=== PATIENT | female | born 1950 | race Caucasian/White ===

== ENCOUNTER → 2017-11-06 | Outpatient (CLI) | payer MEDICARE ==
[~2017-11-06] MED LIST: Advil200 M1; BUME1; CLIMARA; ESTNORT; HYDACE5; HYOS.125 SL; MAGNESIUM100 MG; PANT40 PO; PHENA200 PO; POTA10T; PROACE100 PO; PROM25 PO; PROMETRIUM; RXPHEN200 PO; TRIHYD5075; WATER PILL
== END | disposition home or self-care (01) ==
LOC: PLD 13:54 → LAB SHORT 13:54
DX: D22.72 Melanocytic nevi of left lower limb, including hip (principal); L11.8 Other specified acantholytic disorders
CPT/HCPCS: 88305

== ENCOUNTER → 2017-12-27 | Outpatient (CLI) | payer MEDICARE | LOC: OLS 15:37 → LAB SHORT 15:37 | PROVIDERS: Obstetrics & Gynecology Gynecology | DX: Z91.89 Other specified personal risk factors, not elsewhere classified (principal) | CPT/HCPCS: 87624; G0123 ==

== ENCOUNTER → 2019-04-08 | Outpatient (CLI) | payer MEDICARE | END | disposition home or self-care (01) | LOC: PLD 08:23 → LAB SHORT 08:23 | DX: D48.5 Neoplasm of uncertain behavior of skin (principal) | CPT/HCPCS: 88305 ==

== ENCOUNTER → 2019-04-23 | Outpatient (CLI) | payer MEDICARE ==
[2019-04-25 15:07] LABS: HPV 16 Negative (Negative); HPV 18 Negative (Negative); HPV OTHER HR TYPES Negative (Negative)
== END | disposition home or self-care (01) ==
LOC: LAB SHORT 17:49 → LAB 17:49
PROVIDERS: Obstetrics & Gynecology Gynecology
DX: L29.3 Anogenital pruritus, unspecified (principal); Z91.89 Other specified personal risk factors, not elsewhere classified
CPT/HCPCS: 87070; 87205; 87624; G0123

== ENCOUNTER 2020-11-13 07:32 | Day surgery (SDC) | payer MEDICARE | END 2020-11-13 23:08 | disposition home or self-care (01) | LOC: MOI US 07:32 → MOI MAM 08:00 → MOI US 23:08 | DX: C50.811 Malignant neoplasm of overlapping sites of right female breast (principal); Z17.0 Estrogen receptor positive status [ER+] | CPT/HCPCS: 19083; 77065; 88305; 88342; 88360; A4648 ==

== ENCOUNTER 2020-11-18 08:26 | Day surgery (SDC) | payer MEDICARE ==
[~2020-11-18] VITALS: Ht 162.6 cm; Wt 96.3 kg
--- NOTE | 2020-11-18 09:28 | NUR ---
11/18/20 0928 Tonia Polk WHEN PT. ASKED IF SHE HAD ANY PAIN, PT. DENIES BUT THEN DID SAY SHE HAD A RECENT RIGHT BREAST BIOPSY & JUST VERBALIZES IT BEING SORE.
== END 2020-11-18 10:35 | disposition home or self-care (01) ==
LOC: ORSCSDS 08:26
PROVIDERS: Internal Medicine Gastroenterology
PROC: 0DBL8ZX Excision of Transverse Colon, Via Natural or Artificial Opening Endoscopic, Diagnostic (ICD-10-PCS; principal; 2020-11-18 09:45)
DX: Z12.11 Encounter for screening for malignant neoplasm of colon (principal); Z86.010 Personal history of colon polyps; D12.3 Benign neoplasm of transverse colon; K57.30 Diverticulosis of large intestine without perforation or abscess without bleeding; E66.01 Morbid (severe) obesity due to excess calories; Z68.36 Body mass index [BMI] 36.0-36.9, adult; Z79.899 Other long term (current) drug therapy
CPT/HCPCS: 88305; J2704; J7120

== ENCOUNTER → 2021-05-10 | Outpatient (CLI) | payer MEDICARE ==
[2021-05-10 13:11] LABS: Albumin, Blood 3.3 g/dL (3.4-5.0); Albumin/Globulin Ratio 0.9 (0.8-1.8); Bilirubin, Total 0.5 mg/dL (0.1-1.0); Bun/Creatinine Ratio 21.1 (12.0-20.0); Calcium, Blood 9.7 mg/dL (8.5-10.1); Creatinine, Blood 1.23 mg/dL (0.40-1.00); Globulin, Blood 3.7 g/dL (2.2-4.0); Potassium, Blood 3.4 mmol/L (3.5-5.5)
== END | disposition home or self-care (01) ==
LOC: LAB SHORT 11:41 → LAB 11:41
PROVIDERS: Internal Medicine Hematology & Oncology
DX: C50.919 Malignant neoplasm of unspecified site of unspecified female breast (principal)
CPT/HCPCS: 80053

== ENCOUNTER 2022-07-27 08:36 | Day surgery (SDC) | payer MEDICARE ==
[~2022-07-27] VITALS: Ht 162.6 cm; Wt 84.9 kg
[~2022-07-27 08:36] MED LIST changes: +ANASTROZOLE1 M7 PO; -Advil200 M1; +DYAZIDE 37.5-21 EACH PO; +ESTRADIOL CREAM VAG; +IBUP200 PO; +MYRBETRIQ25 MG PO
--- NOTE | 2022-07-27 09:29 | NUR ---
[facility] in [facility] warming gown applied. Surgical site prepped with 2% Chlorhexidine cloth wipe. History, Chart, Medications and Allergies reviewed before start of procedure.Lungs clear T/O to Auscultation. Surgical site prepped with 2% Chlorhexidine cloth wipe. Pre-Op teaching done. Pt verbalizes understanding. Patient confirms NPO status and agrees with scheduled surgery. Patient States Post-Procedure ride home has been arranged. Patient reports completing Chlorhexadine shower X2 prior to admission to hospital.
--- NOTE | 2022-07-27 10:51 | NUR ---
07/27/22 1051 Ethel De Jesus PATIENT RECEIVED VANCO 1GM PRIOR TO ARRIVING IN THE OR.
--- NOTE | 2022-07-27 18:18 | NUR ---
SHIFT SUMMARY PT S/P R TOTAL KNEE. PT VERY NUMB AFTER SURGERY IS NOW ABLE TO WIGGLE HER TOES BUT UNABLE TO LIFT HER LEGS. PT STILL ALSO C/O SOME NUMBNESS IN HER LEGS. WILL WORK WITH PHYSICAL THERAPY TOMORROW. SOME NAUSEA NOTED POST OP AND TREATED PER EMR. VSS.
[2022-07-28 03:49] LABS: BASOPHILS ABSOLUTE AUTO 0.02 K/mm3 (0.00-0.23); BASOPHILS PERCENT AUTO 0 % (0-2); EOSINOPHILS PERCENT AUTO 0 % (0-6); Hematocrit 36.7 % (33.0-51.0); Hemoglobin 12.6 g/dL (11.5-16.0); IMMATURE GRAN ABSOLUTE AUTO 0.08 K/mm3 (0.00-0.10); IMMATURE GRAN PERCENT AUTO 1 % (0-1); LYMPHOCYTES ABSOLUTE AUTO 0.84 K/mm3 (0.84-5.20); LYMPHOCYTES PERCENT AUTO 6 % (21-46); MONOCYTES ABSOLUTE AUTO 0.58 K/mm3 (0.16-1.47); MONOCYTES PERCENT AUTO 4 % (4-13); Mean Corpuscular HGB Conc 34.3 g/dL (31.5-36.5); Mean Corpuscular Volume 90 fL (80-100); Mean Platelet Volume 9.2 fL (9.1-12.4); NEUTROPHILS ABSOLUTE AUTO 13.26 K/mm3 (1.96-9.15); NEUTROPHILS PERCENT AUTO 90 % (41-73); Platelet Count 218 K/mm3 (150-400); RDW Coefficient Variation 13.1 % (11.7-14.2); Red Blood Cell Count 4.07 M/mm3 (3.80-5.20); White Blood Cell Count 14.78 K/mm3 (4.00-11.30)
--- NOTE | 2022-07-28 04:10 | NUR ---
POD1 FOR RIGHT TKA. CIRCULATION AND SENSATION REMAINS INTACT IN RLE. DRESSING IS C/D/I. PT REPORTS SHE FEELS IF HER SPINAL HAS WORN OFF. VSS. PT DOZED T/O THE NIGHT, NO REPORTS OF GOOD SLEEP. MEDICATED FOR PAIN WTIH OXY AND SCHEDULED MEDS. PT AMBULATED TO THE BATHROOM A FEW TIMES TO VOID. TOLLERATED PO INTAKE W/O EMESIS. PT C/O NAUSEA THE FIRST HALF OF SHIFT. NO ACUTE EVENTS NOTED T/O THE NIGHT. THE PATIENT IS CURRENTLY AMBULATING IN HER ROOM WITH THE SIGN DESIGNER, IN NO DISTRESS. PLAN FOR PT TO D/C HOME TODAY.
[2022-07-28 04:25] LABS: Bun/Creatinine Ratio 22.2 (12.0-20.0); Calcium, Blood 8.5 mg/dL (8.5-10.1); Creatinine, Blood 1.26 mg/dL (0.40-1.00); Potassium, Blood 4.3 mmol/L (3.5-5.5)
--- NOTE | 2022-07-28 14:39 | NUR ---
Pt. is sitting up in a recliner and welcomes my visit. Pt. is pleasant. Facilitated a life review and established rapport. Pt. was unsettled about the possibility of infection in her new knee. Listened with empathy and a calming presence. Pt. displayed evidence of confidence and new courage. Prayed with Pt. Pt. verbalized gratitude for the spiritual care visit.
[2022-07-28] MEDS ORDERED: ASPI81CH PO (15:10)
[2022-07-28] MEDS ORDERED: PROM25 PO (15:14)
[2022-07-28] MEDS ORDERED: ROXICODONE5 MG PO (15:14)
[2022-07-28] MEDS ORDERED: SULTRIDS PO (15:15)
--- NOTE | 2022-07-28 16:20 | NUR ---
DISCHARGE SUMMARY PATIENT ALERT AND ORIENTED. TOLERATING REGULAR DIET AND LIQUIDS. SBA WITH FWW AND GAIT BELT TO AMBULATE IN ROOM. PAIN CONTROLLED WITH SCHEDULED TYLENOL. HAS NOT NEEDED NARCOTICS THIS SHIFT. RIGHT KNEE DRESSING CHANGED BY DR PALACIOS THIS AM. VOIDING WELL. CLEARED FOR DISCHARGE BY PHYSICAL THERAPY. DISCHARGE EDUCATION GIVEN ON NEW MEDS, ACTIVITY, INCISION CARE, AND FOLLOW UP APPTS. IV'S DC'D BY LINNETTE HERNANDEZ. PATIENT LEFT UNIT AT 1600 VIA WHEELCHAIR FOR HOME WITH SPOUSE.
== END 2022-07-28 16:10 | disposition home or self-care (01) ==
LOC: ORSCMMR 08:36 → ORD 10:45 → ORSCMMR 10:45 → SURS 13:35 → ORSCMMR 07-28 16:10
PROVIDERS: Orthopaedic Surgery
PROC: 0SRC0J9 Replacement of Right Knee Joint with Synthetic Substitute, Cemented, Open Approach (ICD-10-PCS; principal; 2022-07-27 10:45)
DX: M17.0 Bilateral primary osteoarthritis of knee (principal)
CPT/HCPCS: 36415; 73560-RT; 80048; 83735; 85025; 97110; 97116; 97162; 97530; A9270; C1713; C1776; J0171; J0690; J0735; J1885; J2250; J2405; J2704; J2765; J2795; J3010; J3370; J7050; J7120

== ENCOUNTER → 2022-08-20 | Outpatient (CLI) | payer MEDICARE ==
[~2022-08-20] MED LIST changes: +ASPI81CH PO; +ROXICODONE5 MG PO; +SULTRIDS PO
[2022-08-20 17:58] LABS: Candida species (DNA Probe) Negative (NEGATIVE); G. vaginalis (DNA Probe) Positive (NEGATIVE); T. vaginalis (DNA Probe) Negative (NEGATIVE)
== END ==
LOC: LAB SHORT 15:35 → LAB 15:35
PROVIDERS: Physician Assistant
DX: N76.0 Acute vaginitis (principal)
CPT/HCPCS: 87077; 87086; 87186; 87480; 87510; 87660

== ENCOUNTER → 2022-09-05 | Outpatient (CLI) | payer MEDICARE | LOC: LAB SHORT 15:00 → LAB 15:00 | DX: N39.0 Urinary tract infection, site not specified (principal) | CPT/HCPCS: 87077; 87086; 87186 ==

== ENCOUNTER 2024-10-17 06:10 | Day surgery (SDC) | payer MEDICARE ==
[~2024-10-17] VITALS: Ht 160 cm; Wt 82.8 kg
[~2024-10-17 06:10] MED LIST changes: +Balanced Salt Epinephrine Irrigation Solution 500 mL IR SCH; +Diazepam 5 MG Tab PO PRN; +Diazepam 5 MG Tab PO SCH; +Lidocaine HCl/Pf 1% 5 ML VIAL XX SCH; +Moxifloxacin HCL 0.5 MG/0.1 ML 0.4MLSYR RIGHTEYE SCH; +Ondansetron 4 MG SoluTab MM PRN; +PHENYLEPHRINE\\TROPICAMIDE\\TETRACAINE OPHTHALMIC DILATING SOLN RIGHTEYE PRN; +Povidone-Iodine 450 DROP/30 ML Solution ONE; +Povidone-Iodine 450 DROP/30 ML Solution RIGHTEYE SCH; +Tetracaine HCl/Pf 0.5% Opth Soln 4 ml ONE; +Triamcinolone Inj Susp 40 MG / ML 1ML Vial INJ SCH
[2024-10-17] MEDS ORDERED: Diazepam 10 MG Tab ONE (06:15)
[2024-10-17] MEDS ORDERED: Triamcinolone Inj Susp 40 MG / ML 1ML Vial ONE (06:31)
[2024-10-17] MEDS ORDERED: Lidocaine HCl/Pf 1% 5 ML VIAL ONE (06:31)
[2024-10-17] MEDS ORDERED: Vitamin D1000 UNI1 PO (06:40)
[2024-10-17] MEDS ORDERED: ASCO500 PO (06:41)
--- NOTE | 2024-10-17 06:54 | NUR ---
10/17/24 0654 Eloisa Dietz PT REPORTS ANXIETY AT 5/10 PRIOR TO VALIUM. VALIUM 10MG PO X1 GIVEN AT 0636. WHEN REASSESSED AT 0654 PT REPORTS ANXIETY IMPROVED TO 2-3/10. CALL LIGHT AT BEDSIDE. TETRACAINE IN AT 0639 PLEDGETT IN AT 0642
--- NOTE | 2024-10-17 07:37 | NUR ---
10/17/24 0737 Anamika Hurtado 0730 BP 116/60, 62, 100. PT STABLE, CONTINUING TO MONITOR
[2024-10-17 07:58] VITALS: BP 120/59
== END 2024-10-17 08:03 | disposition home or self-care (01) ==
LOC: ORSCSDS 06:10
PROVIDERS: Ophthalmology
PROC: 08RJ3JZ Replacement of Right Lens with Synthetic Substitute, Percutaneous Approach (ICD-10-PCS; principal; 2024-10-17 07:30)
DX: H25.813 Combined forms of age-related cataract, bilateral (principal); H04.123 Dry eye syndrome of bilateral lacrimal glands; Z79.899 Other long term (current) drug therapy
CPT/HCPCS: A9270; J2003; J3301; V2632

== ENCOUNTER 2024-10-24 06:12 | Day surgery (SDC) | payer MEDICARE ==
[~2024-10-24] VITALS: Ht 160 cm; Wt 82.7 kg
[~2024-10-24 06:12] MED LIST changes: +ASCO500 PO; -Balanced Salt Epinephrine Irrigation Solution 500 mL IR SCH; -Diazepam 5 MG Tab PO PRN; -Diazepam 5 MG Tab PO SCH; -Lidocaine HCl/Pf 1% 5 ML VIAL XX SCH; -Moxifloxacin HCL 0.5 MG/0.1 ML 0.4MLSYR RIGHTEYE SCH; -Ondansetron 4 MG SoluTab MM PRN; -PHENYLEPHRINE\\TROPICAMIDE\\TETRACAINE OPHTHALMIC DILATING SOLN RIGHTEYE PRN; -Povidone-Iodine 450 DROP/30 ML Solution RIGHTEYE SCH; -Triamcinolone Inj Susp 40 MG / ML 1ML Vial INJ SCH; +Vitamin D1000 UNI1 PO
[2024-10-24] MEDS ORDERED: Diazepam 10 MG Tab ONE (06:19)
[2024-10-24] MEDS ORDERED: Triamcinolone Inj Susp 40 MG / ML 1ML Vial ONE (06:54)
[2024-10-24] MEDS ORDERED: Lidocaine HCl/Pf 1% 5 ML VIAL ONE (06:55)
[2024-10-24] MEDS ORDERED: BSS PLUS/EPINEPHRINE IRRIGATION SOLUTION 500 ML LEFTEYE ONE (07:36)
[2024-10-24] MEDS ORDERED: Moxifloxacin HCL 0.5 MG/0.1 ML 0.4MLSYR LEFTEYE ONE (07:36)
[2024-10-24] MEDS ORDERED: Triamcinolone Acetonide/Pf 40 MG/ML Susp (1ML) XX ONE (07:36)
--- NOTE | 2024-10-24 07:36 | NUR ---
10/24/24 0736 Amaya Randhawa bp-137/66 p-68 spo2 97 10L BLOW BY O2
[2024-10-24] MEDS ORDERED: Ondansetron 4 MG SoluTab MM PRN ×2 (07:50→08:50)
[2024-10-24 07:52] VITALS: BP 143/77
[2024-10-24] MEDS ORDERED: Diazepam 5 MG Tab PO PRN (08:50)
[2024-10-24] MEDS ORDERED: Triamcinolone Inj Susp 40 MG / ML 1ML Vial INJ SCH (08:50)
[2024-10-24] MEDS ORDERED: Lidocaine HCl/Pf 1% 5 ML VIAL XX SCH (08:50)
[2024-10-24] MEDS ORDERED: Povidone-Iodine 450 DROP/30 ML Solution LEFTEYE SCH (08:50)
[2024-10-24] MEDS ORDERED: Balanced Salt Epinephrine Irrigation Solution 500 mL IR SCH (08:50)
[2024-10-24] MEDS ORDERED: Moxifloxacin HCL 0.5 MG/0.1 ML 0.4MLSYR LEFTEYE SCH (08:50)
[2024-10-24] MEDS ORDERED: Diazepam 5 MG Tab PO SCH (08:50)
[2024-10-24] MEDS ORDERED: PHENYLEPHRINE\\TROPICAMIDE\\TETRACAINE OPHTHALMIC DILATING SOLN LEFTEYE PRN (08:50)
[2024-10-25] MEDS ORDERED: Diazepam 5 MG Tab PO SCH (06:00)
[2024-10-25] MEDS ORDERED: Diazepam 5 MG Tab PO PRN (06:00)
[2024-10-25] MEDS ORDERED: PHENYLEPHRINE\\TROPICAMIDE\\TETRACAINE OPHTHALMIC DILATING SOLN LEFTEYE PRN (06:00)
[2024-10-25] MEDS ORDERED: Povidone-Iodine 450 DROP/30 ML Solution LEFTEYE SCH (06:00)
[2024-10-25] MEDS ORDERED: Triamcinolone Inj Susp 40 MG / ML 1ML Vial INJ SCH (06:00)
[2024-10-25] MEDS ORDERED: Balanced Salt Epinephrine Irrigation Solution 500 mL IR SCH (06:00)
[2024-10-25] MEDS ORDERED: Moxifloxacin HCL 0.5 MG/0.1 ML 0.4MLSYR LEFTEYE SCH (06:00)
[2024-10-25] MEDS ORDERED: Lidocaine HCl/Pf 1% 5 ML VIAL XX SCH (06:00)
== END 2024-10-24 08:04 | disposition home or self-care (01) ==
LOC: ORSCSDS 06:12
PROVIDERS: Ophthalmology
PROC: 08RK3JZ Replacement of Left Lens with Synthetic Substitute, Percutaneous Approach (ICD-10-PCS; principal; 2024-10-24 07:30)
DX: H25.812 Combined forms of age-related cataract, left eye (principal); Z96.1 Presence of intraocular lens; H04.123 Dry eye syndrome of bilateral lacrimal glands; Z79.899 Other long term (current) drug therapy
CPT/HCPCS: A9270; J2003; J3300; J3301; V2632